=== PATIENT | male | born 1970 | race Caucasian/White ===

== ENCOUNTER 2018-10-13 17:30 | Emergency (ER) | payer MEDICARE, MEDICAID ==
[~2018-10-13] VITALS: Ht 185.4 cm; Wt 110.3 kg
[2018-10-13] MEDS ORDERED: normal saline 1000ml 1,000 ML IV ONE (19:40)
[2018-10-13] MEDS ORDERED: CHLO25CA10 PO (19:41)
[2018-10-13 20:13] VITALS: BP 147/101
== END 2018-10-13 20:15 | disposition home or self-care (01) ==
LOC: ER 17:32
DX: F10.239 Alcohol dependence with withdrawal, unspecified (principal); F12.90 Cannabis use, unspecified, uncomplicated; Z98.890 Other specified postprocedural states
CPT/HCPCS: 99283; J7030

== ENCOUNTER 2019-03-09 06:01 | Emergency (ER) | payer MEDICARE, MEDICAID ==
[~2019-03-09] VITALS: Ht 185.4 cm; Wt 86.4 kg
[~2019-03-09 06:01] MED LIST: CHLO25CA10 PO
[2019-03-09] MEDS ORDERED: LORazepam 1 MG tablet PO ONE (06:20)
[2019-03-09] MEDS ORDERED: CHLO25CA10 PO (06:21)
[2019-03-09 06:34] VITALS: BP 134/92
== END 2019-03-09 06:38 | disposition home or self-care (01) ==
LOC: ER 06:02
DX: F10.239 Alcohol dependence with withdrawal, unspecified (principal); F12.90 Cannabis use, unspecified, uncomplicated; Z98.890 Other specified postprocedural states; Z79.899 Other long term (current) drug therapy
CPT/HCPCS: 99283